=== PATIENT | male | born 2000 | race Two or more races ===

== ENCOUNTER 2024-12-28 04:32 | Emergency (ER) | payer OTHER ==
[~2024-12-28] VITALS: Ht 175.3 cm; Wt 97.5 kg
[2024-12-28] MEDS ORDERED: METOCLOPRAMIDE HCL 5 MG/ML VIAL IM STA (05:12)
[2024-12-28] MEDS ORDERED: RINGERS SOLUTION,LACTATED 1,000 ML IV STA (05:14)
[2024-12-28] MEDS ORDERED: FAMOtidine 10 MG/ML (4ML VIAL) IV PUSH STA (05:14)
[2024-12-28] MEDS ORDERED: HYOSCYAMINE SULFATE 0.125 MG TAB.SUBL SL ONE (05:15)
[2024-12-28] MEDS ORDERED: KETOROLAC TROMETHAMINE 30 MG VIAL IV STA (05:15)
[2024-12-28] MEDS ORDERED: HYOSCYAMINE SULFATE 0.125 MG TAB.SUBL ONE (05:30)
[2024-12-28] MEDS ORDERED: KETOROLAC TROMETHAMINE 30 MG VIAL ONE (05:30)
[2024-12-28] MEDS ORDERED: METOCLOPRAMIDE HCL 5 MG/ML VIAL ONE (05:30)
[2024-12-28] MEDS ORDERED: FAMOTIDINE/PF 20 MG/2 ML VIAL ONE (05:34)
[2024-12-28 06:17] LABS: HEMATOCRIT 46.1 % (39.0-48.0); HEMOGLOBIN 15.8 g/dL (13-16.00); MEAN CELL VOLUME 87.7 fL (80.0-100.00); MEAN CORPUSCULAR HEMOGLOBIN 30.2 pg (27.00-32.0); MEAN CORPUSCULAR HGB CONC 34.4 g/dl (32.0-36.0); PLATELET COUNT 294 K/uL (150-450); RED BLOOD COUNT 5.26 M/uL (4.00-6.00); RED CELL DISTRIBUTION WIDTH 14.3 % (11.5-14.5)
[2024-12-28 06:42] LABS: CALCIUM 10.6 mg/dL (8.5-10.1); CREATININE SERUM 0.91 mg/dL (0.70-1.30); GFR 103.24; POTASSIUM 3.02 mEq/L (3.5-5.1)
[2024-12-28] MEDS ORDERED: PIPERACILLIN/TAZOBACTAM SODIUM 3.375 GM VIAL IV STA (07:34)
[2024-12-28] MEDS ORDERED: PIPERACILLIN/TAZOBACTAM SODIUM 3.375 GM VIAL IV ONE (07:47)
[2024-12-28] MEDS ORDERED: DICY20TA PO (09:02)
[2024-12-28] MEDS ORDERED: PEPCID AC20 MG PO (09:02)
[2024-12-28] MEDS ORDERED: METRONIDAZOLE500 MG PO (09:02)
[2024-12-28] MEDS ORDERED: CIPRO500 MG PO (09:02)
[2024-12-28] MEDS ORDERED: ZOFRAN8 MG PO (09:04)
[2024-12-28] MEDS ORDERED: PROBIOTIC1 EAC2 PO (09:04)
[2024-12-28] MEDS ORDERED: WATER FOR INJ.,BACTERIOSTATIC 30 ML VIAL IJ ONE (09:06)
[2024-12-28] MEDS ORDERED: METHYLPREDNISOLONE SOD SUCC 40 MG VIAL ONE (09:06)
[2024-12-28] MEDS ORDERED: METHYLPREDNISOLONE SOD SUCC 40 MG VIAL IM ONE (09:15)
[2024-12-29] MEDS ORDERED: PEPCID40 MG PO (06:31)
[2024-12-29] MEDS ORDERED: PHENERGAN25 MG PO (06:31)
== END 2024-12-28 09:20 | disposition home or self-care (01) ==
LOC: ER 04:34
DX: K52.9 Noninfective gastroenteritis and colitis, unspecified (principal); K76.0 Fatty (change of) liver, not elsewhere classified

== ENCOUNTER 2024-12-29 03:25 | Emergency (ER) | payer OTHER ==
[~2024-12-29] VITALS: Ht 175.3 cm; Wt 102.1 kg
[~2024-12-29 03:25] MED LIST: CIPRO500 MG PO; DICY20TA PO; METRONIDAZOLE500 MG PO; PEPCID AC20 MG PO; PROBIOTIC1 EAC2 PO; ZOFRAN8 MG PO
[2024-12-29] MEDS ORDERED: PROMETHAZINE HCL 50 MG/ML AMPUL IM STA (03:53)
[2024-12-29] MEDS ORDERED: FAMOTIDINE/PF 20 MG/2 ML VIAL IV PUSH STA (03:53)
[2024-12-29] MEDS ORDERED: FAMOTIDINE/PF 20 MG/2 ML VIAL ONE (03:56)
[2024-12-29] MEDS ORDERED: PROMETHAZINE HCL 25 MG/ML AMPUL ONE (03:56)
[2024-12-29] MEDS ORDERED: 0.9 % SODIUM CHLORIDE 1,000 ML IV ONE (04:00)
[2024-12-29 04:21] LABS: HEMATOCRIT 46.3 % (39.0-48.0); HEMOGLOBIN 16.1 g/dL (13-16.00); MEAN CELL VOLUME 87.6 fL (80.0-100.00); MEAN CORPUSCULAR HEMOGLOBIN 30.5 pg (27.00-32.0); MEAN CORPUSCULAR HGB CONC 34.8 g/dl (32.0-36.0); PLATELET COUNT 312 K/uL (150-450); RED BLOOD COUNT 5.28 M/uL (4.00-6.00); RED CELL DISTRIBUTION WIDTH 14.2 % (11.5-14.5)
[2024-12-29 04:45] LABS: ALBUMIN 4.7 gm/dL (3.4-5.0); BILIRUBIN TOTAL 1.16 mg/dL (0.3-1.2); CALCIUM 10.7 mg/dL (8.5-10.1); CREATININE SERUM 1.28 mg/dL (0.70-1.30); GFR 69.64; GLOBULINA 3.8 G/DL (2.4-3.5); POTASSIUM 3.09 mEq/L (3.5-5.1); TOTAL PROTEIN 8.5 gm/dL (6.4-8.2)
[2024-12-29] MEDS ORDERED: PEPCID40 MG PO (06:31)
[2024-12-29] MEDS ORDERED: PHENERGAN25 MG PO (06:31)
== END 2024-12-29 06:44 ==
LOC: ER 03:26
PROVIDERS: General Practice
DX: R11.10 Vomiting, unspecified (principal); K29.70 Gastritis, unspecified, without bleeding